=== PATIENT | female | born 1975 | race Caucasian/White ===

== ENCOUNTER 2021-11-02 13:39 | Outpatient (REF) | payer OTHER, SELFPAY ==
--- NOTE | 2021-11-02 13:15 | PAPFT_PTH ---
PATIENT: Yecenia Alfred LOC: [facility] U#:[id number] AGE/SX: 46/F ROOM: RE11/02/[address]: Aparna Lane NP : 1975 BED: DIS: 11/02/2021 SPEC #: [id number] RECD: 11/02/21 17:57 STATUS: NEISHA REYES #: [id number] SUE: 11/02/21 13:[address]: Aparna Lane NP DEPT: [facility] Cytology RECD BY: Ria Leonardo Tissues: 1 - CX/ENDOCX FOR PAP SMEARS Procedures: PAP THIN PREP/UVM Screening Comments: [id number] (CHLAMYDIA/GC) (UNSATISFACTORY FOR EVALUATION)
[2021-11-03 14:37] LABS: Chlamydia Result Negative (Negative); GC Result Negative (Negative)
== END 2021-11-02 13:40 | disposition home or self-care (01) ==
LOC: LBN 13:39
PROVIDERS: Visit Provider Nurse Practitioner Women's Health
DX: Z11.3 Encounter for screening for infections with a predominantly sexual mode of transmission (principal); Z12.4 Encounter for screening for malignant neoplasm of cervix; R87.615 Unsatisfactory cytologic smear of cervix
CPT/HCPCS: 87491; 87591; 88142

== ENCOUNTER 2021-11-06 01:08 | Outpatient (CLI) | payer OTHER, SELFPAY ==
--- OUTSIDE RECORDS SUMMARY | 2021-11-06 01:28 | XMS_ITS | Encounter Summary ---
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 CHLAMYDIA/N. Today 11/02/2021 13:15 Results for this GONORRHOEAE EDT procedure are i n AMPLIFIED RNA, the results THINPREP section. documented in this encounter Results PAP TEST (11/02/2021 13:15 EDT) Specimens A. Cervix and/or [facility] Endocervix , [place] ThinPrep Imaging LABORATORY System with Manual SERVICES Evaluation Specimen Adequacy Unsatisfactory for [facility] evaluation - CENTER insufficient numbers LABORATORY of squamous SERVICES epithelial cells (less than 10% of expected cellularity). General Unsatisfactory [facility] LABORATORY SERVICES Educational Comments Unsatisfactory - Specimen pr ocessed and examined, but unsatisfactory for evaluation of epithelial abnormality. Recommend Pap test in 2-4 months as stated in ASCCP's 2012 Updated Guidelines. HPV testing [facility] will not be performed due to the potential for false n egative results. CENTER LABORATORY SERVICES Attestation . [facility] Electronically CENTER signed by CATARINA Winston CT([facility] ) on SERVICES 11/05/2021 at 12 40 Clinical History See below [facility] LABORAT[facility] SERVICES Performing Lab [facility] LAB [facility] SERVICES Scanned Images [facility] LABOR[facility] SERVICES Specimen Pap Test - Cervix and/or Endocervix Performing Organization Address City/State/ZIP Code Phon e Number [facility] [address] [place] [address] SERVICES CHLAMYDIA/N. GONORRHOEAE AMPLIFIED RNA, THINPREP (11/02/2021 13:15 EDT) Pathologist Sig nature Gonococcus Result Negative Negative [facility] SERVICES Chlamydia Result Negative Negative [facility] SERVICES Specimen Pap Test - Cervix and/or Endocervix Performing Organization Address City/State/ZIP Code Phon e Number [facility] [address] [place] [address] SERVICES documented in this encounter Visit Diagnoses Diagnosis Encounter for other general examination documented in this encounter
--- OUTSIDE RECORDS SUMMARY | 2021-11-06 01:28 | XMS_ITS | Clinical Summary ---
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 CHLAMYDIA/N. Today 11/02/2021 13:15 Results for this GONORRHOEAE EDT procedure are i n AMPLIFIED RNA, the results THINPREP section. from Last 3 Months Results PAP TEST (11/02/2021 13:15 EDT) Specimens A. Cervix and/or [facility] Endocervix , [place] ThinPrep Imaging LABORATORY System with Manual SERVICES Evaluation Specimen Adequacy Unsatisfactory for [facility] evaluation - CENTER insufficient numbers LABORATORY of squamous SERVICES epithelial cells (less than 10% of expected cellularity). General Unsatisfactory [facility] LABORATORY SERVICES Educational Comments Unsatisfactory - Specimen pr ocessed and examined, but unsatisfactory for evaluation of epithelial abnormality. Recommend Pap test in 2-4 months as stated in ASCCP's 2012 Updated Guidelines. HPV testing [facility] will not be performed due to the potential for false n egative results. CENTER LABORATORY SERVICES Attestation . [facility] CENTER signed by CATARINA Winston CT([facility] ) on SERVICES 11/05/2021 at 12 40 Clinical History See below [facility] LABORATORY SERVICES Performing Lab [facility] LAB [facility] LABORATORY SERVICES Scanned Images [facility] LABORATORY SERVICES Specimen Pap Test - Cervix and/or Endocervix Performing Organization Address City/State/ZIP Code Phon e Number [facility] [address] [place] [address] SERVICES CHLAMYDIA/N. GONORRHOEAE AMPLIFIED RNA, THINPREP (11/02/2021 13:15 EDT) Pathologist Sig nature Gonococcus Result Negative Negative [facility] LABORATORY SERVICES Chlamydia Result Negative Negative [facility] LABORAT[facility] SERVICES Specimen Pap Test - Cervix and/or Endocervix Performing Organization Address City/State/ZIP Code Phon e Number [facility] [address] [place] [address] SERVICES from Last 3 Months
--- NOTE | 2021-11-06 06:45 | DI.US_ITS ---
Exam(s) US PELVIS TRANSVAGINAL EXAM: US PELVIS TRANSVAGINAL CLINICAL HISTORY: abnl uterine bleeding, n93.9 TECHNIQUE: Ultrasound of the pelvis was performed both transabdominal and transvaginal. COMPARISON: No exams were available for comparison FINDINGS: UTERUS: Nongravid and anteverted Measures 8.5 cm length x 4 cm AP x 6 cm wide. There are no uterine fibroids. Endometrial thickness measures 9 mm. There is no fluid in the endometrial canal. CERVIX: There are no obvious nabothian cysts. RIGHT OVARY: Measures 3 x 2.5 x 2 cm Contains small sub cm follicular cysts. LEFT OVARY: Measures 4 x 2.8 x 4 cm There is a simple unilocular cyst in the left ovary which measures 3.2 x 2.7 x 3.1 cm CUL-DE-SAC: No free fluid evident. IMPRESSION: 1. Normal appearing uterus and age-appropriate endometrium. 2. There is a 0.2 x 2.7 x 3.1 cm cyst in the left ovary which appears unilocular/simple. 3. No free fluid evident in the adnexal regions and cul-de-sac. DATA REPOSITORY:
[2021-11-06 09:51] LABS: HGB 11.9 g/dL (11.2-15.7); MCH 33.7 pg (27.0-33.0); MCHC 33.1 % (32.0-36.0); MCV 102 fL (80-95); MPV 12.4 fL (8.0-11.0); Platelet Count 292 10^3/uL (130-400); RBC 3.53 10^6/uL (3.93-5.22); RDW-SD 48.6 fL; WBC 6.38 10^3/uL (4.4-10.8)
[2021-11-06 10:39] LABS: TSH (W/Ref FT4) 1.99 uIU/mL (0.36-3.74)
== END 2021-11-06 01:28 ==
LOC: DI 01:08
PROVIDERS: Visit Provider Nurse Practitioner Women's Health
DX: N83.202 Unspecified ovarian cyst, left side; N93.9 Abnormal uterine and vaginal bleeding, unspecified
CPT/HCPCS: 36415; 85027; 76830; 76856; 84443

== ENCOUNTER 2021-11-06 14:58 | Outpatient (CLI) | payer OTHER, SELFPAY | END 2021-11-06 14:59 | disposition home or self-care (01) | LOC: LBO 15:00 | PROVIDERS: Visit Provider Nurse Practitioner Women's Health ==

== ENCOUNTER 2023-11-28 09:54 | Outpatient (REF) | payer SELFPAY ==
--- NOTE | 2023-11-28 09:45 | ENDOMET_PTH ---
PATIENT: Yecenia Alfred LOC: [facility] U#:[id number] AGE/SX: 48/F ROOM: RE11/28/[address]: Chani Painting : 1975 BED: DIS: 11/28/2023 SPEC #: [id number] RECD: 11/28/23 12:52 STATUS: NEISHA REQ #: [id number] SUE: 11/28/23 09:[address]: Chani Painting DEPT: Surgical Specimen RECD BY: Ria Leonardo ENTERED: 11/28/23 12:52 SP TYPE: Endomet OTHR DR: Unknown,Unknown Tissues: 1 - ENDOMETRIUM BX/CURRETTE Procedures: GROSS AND MICRO LEVEL 4 Comments: [id number]
== END 2023-11-28 09:55 | disposition home or self-care (01) ==
LOC: LBN 09:54
PROVIDERS: Visit Provider Obstetrics & Gynecology Gynecology
DX: N93.9 Abnormal uterine and vaginal bleeding, unspecified (principal); Z92.89 Personal history of other medical treatment
CPT/HCPCS: 88305

== ENCOUNTER 2024-02-19 09:23 | Emergency (ER) | payer SELFPAY ==
[2024-02-19] VITALS (31 sets, daily range): BP systolic 106–151; BP diastolic 67–80; PULSE 60–78; RESP 18; TEMP 36.9; O2SAT 96–100
--- NOTE | 2024-02-19 09:30 | DI.CT_ITS ---
Exam(s) CT NECK W EXAM: CT NECK W INDICATION: left sided neck pain/swelling, ?abscess. COMPARISON: No exams were available for comparison TECHNIQUE: FINDINGS: VISUALIZED PARANASAL SINUSES: Unremarkable. NASOPHARYNX: Unremarkable ORODENTAL: Unremarkable. There is a peripherally enhancing soft tissue abscess just medial to the angle of the left side of th e mandible and just above the left submandibular gland involving the medial pterygoid muscle, this pe ripherally enhancing abscess measuring 2 cm wide by 2 cm craniocaudal by 1.4cm AP. There is no c/o s eated bone destruction. No obvious dental abnormality OROPHARYNX: Unremarkable. No masses evident. HYPOPHARYNX: There is slight thickening of the free edge of the epiglottis. Valleculae unremarkable as are the aryepiglottic folds VOCAL CORDS: Unremarkable. No masses evident. Subglottic airway appears unremarkable. THYROID GLAND: Unremarkable. Normal size and no obvious nodules. SALIVARY GLANDS: Unremarkable. No significant findings in the parotid and submandibular glands. No submandibular gland calcifications. Left-sided abscess described above is immediately subjacent to t he left submandibular gland. LYMPH NODES: There is no obvious adenopathy evident in the neck and supraclavicular regions. OTHER: VISUALIZED LUNG APICES: No significant findings. IMPRESSION: 1. There is a 2.0 x 1.4 x 2.0 cm rim enhancing collection-abscess in the left submandibular soft tis sues medial to the angle of the left mandible/mandibular ramus. It involves the left medial pterygoi d muscle. There is no obvious adjacent bony erosion. No prominent adenopathy evident. RADIATION DOSE DELIVERED: 254.66mGy.cm Total DLP DATA REPOSITORY: All CT scans at this facility are submitted to the National Radiology Data Registry (NRDR) Dose Index Registry (DIR) with the [employer] (ACR). RADIATION OPTIMIZATION: All CT scans at this facility use at least one of these dose optimization te chniques: automated exposure control; mA and/or kV adjustment per patient size (includes targeted exa ms where dose is matched to clinical indication); or iterative reconstruction.
--- NOTE | 2024-02-19 09:39 | ED.GENADUL_ITS ---
Discharge Plan Disposition Patient Disposition: Against Medical Advice Condition: Serious Discharge Details Clinical Impression: Abscess of submandibular gland Primary Care Provider: Unknown,Unknown ED Provider: Wade Lane Home Meds and New Rx's Prescriptions: New clindamycin HCl 150 mg capsule 450 mg PO TID 10 Days Qty: 90 0RF Continued norethindrone acetate 5 mg tablet 5 mg PO TID Qty: 60 1RF Rx Instructions: May increase dosing to every 4 hours until bleeding stops ibuprofen 200 mg capsule 200 mg PO Q6H PRN Discharge Instructions Additional Instructions: You have an abscess that is causing the swelling. You should be contacted with an appointment for ENT at [facility] If you feel more ill, have severe worsening pain or difficulty breathing or swallowing liquids return to the emergency department for reevaluation. HPI General Mode of arrival: ambulatory . Date/Time Provider Initiated Documentation: 02/19/24 09:25 . Limitations to Documentation: no limitations . Information obtained by: patient . History of Present Illness 48 year old F presents to the emergency department with the chief complaint of left sided face/neck pain/swelling, described as moderate, Quality is described as aching, Patient started experiencing this week(s) (1) and it has been constant. No relieving factors improve symptom(s), No exacerbating factors reported . Patient notes denies fever/chills. Patient did receive the following treatments prior to arrival, none Related Data Home Medications ?Medication ?Instructions ?Recorded ?Confirmed ibuprofen 200 mg capsule 200 mg PO Q6H PRN 11/02/21 02/19/24 norethindrone acetate 5 mg tablet 5 mg PO TID #60 tabs 11/28/23 02/19/24 clindamycin HCl 150 mg capsule 450 mg (3 x 150 mg) PO TID 10 days 02/19/24 #90 caps Previous Rx's ?Medication ?Instructions ?Recorded norethindrone acetate 5 mg tablet 5 mg PO TID #60 tabs 11/28/23 clindamycin HCl 150 mg capsule 450 mg (3 x 150 mg) PO TID 10 days 02/19/24 #90 caps Allergies Allergy/AdvReac Type Severity Reaction Status Date / Time No Known Allergies Allergy Verified 02/19/24 09:31 General Stated Complaint: FacialProb TRINH: 3 Review of Systems All systems reviewed & are unremarkable except as noted in HPI and below Constitutional Constitutional: Denies chills, Denies fever(s) and Denies weakness ENT Ears, Nose, Mouth, and Throat: Denies change in voice and Reports neck pain Cardiovascular Cardiovascular: Denies chest pain and Denies dyspnea Respiratory Respiratory: Denies cough and Denies dyspnea Gastrointestinal Gastrointestinal: Denies abdominal pain, Denies nausea and Denies vomiting Musculoskeletal Musculoskeletal: Denies joint swelling and Reports neck pain Neurologic Neurologic: Denies weakness Exam Const General: no acute distress Orientation: alert HENMO Head: normal to inspection Ears: external ears normal General nose exam: external nose normal Mouth: moist mucous membranes Eyes General: appearance normal, both eyes and all related structures Neck Neck: full ROM and no lymphadenopathy Resp Effort & Inspection: normal respiratory effort and able to speak in complete sentences Cardio Rate: regular rate Skin General skin exam: no rashes or lesions noted Neuro General: patient alert and patient oriented x3 Extrem General: normal to inspection Psych Mental Status: mental status grossly normal Course Vital Signs Vital signs: Vital Signs Temperature 36.9 C 02/19/24 09:26 Pulse 78 02/19/24 09:26 Respiratory Rate 18 02/19/24 09:26 Blood Pressure 151/80 H 02/19/24 09:26 Pulse Oximetry 100 02/19/24 09:26 Temperature 36.9 C 02/19/24 09:26 Pulse 78 02/19/24 09:26 Respiratory Rate 18 02/19/24 09:26 Blood Pressure 151/80 H 02/19/24 09:26 Pulse Oximetry 100 02/19/24 09:26 Medical Decision Making 48-year-old female who denies any significant chronic medical history comes in with 1 week of left lower jaw and upper neck pain and discomfort. She also has had some swelling. She denies any fevers, change in voice, difficulty swallowing liquids. She is unable to fully open her mouth due to pain in the left lower jaw and upper neck. She has mild swelling in the left lower jaw. No drooling or stridor. She has full range of motion of the neck. Suspect p arotitis versus dental abscess but will obtain labs including CBC and CMP and CT neck to evaluate for deep neck abscess. Patient stable, labs show white count of 15, CT read pending and V rad turnaro und time is over 200 minutes. Will provide a dose of clindamycin while this is pending. ct confirms 1.8x1.3x1.7cm abscess that is submandibular. Pt stable, no drooling or stridor still has some trismus and can't fully open mouth. Will consult ent at [facility] spoke with ENT Dr. Leonard who reviewed the images and case along with her attending, they recommended admission here for IV antibiotics for 24 hours and then if improved or not worsening can be seen in the clinic tomorrow. I discussed results with the patient and she is not agreeable to be admitted. She has decision-making capacity and understands the risks of leaving including worsening infection and airway compromise leading to potential and permanent disability and she is willing to accept these risks. She is leaving AGAINST MEDICAL ADVICE. I am going to provide her clindamycin, I did advise that the ENT office should call her tomorrow for follow-up. She understands she can return if she changes her mind and also return if she has any worsening symptoms. Differential Diagnosis Differential Diagnosis: Parotitis, dental abscess Imaging Data Radiologic Study: Attestation: I personally reviewed and interpreted this imaging study as follows: Imaging: CT Scan Radiologist's impression: Left submandibular abscess at the cranial aspect of the left submandibular gland involving the medial pterygoid muscle measuring 1.8 cm. No bony erosions. Quality:SDOH Health Related Social Needs: No Data to Display PFSH All Active Problems (Updated 02/19/24 @ 13:[address] MD) Abscess of submandibular gland (Acute) History of endometrial biopsy (Acute) Abnormal uterine bleeding (AUB) (Acute) Medical History (Updated 02/19/24 @ 13:[address] MD) Suicide attempt Surgical History (Updated 11/02/21 @ 13:[address] NP) H/O tubal ligation Previous section x3 Social History (Updated 11/02/21 @ 13:[address] NP) Smoking/Tobacco Use Status: Current every day Smoking risk assessment performed?: Yes Alcohol Intake: never Drug use: Occasionally Substance use type: marijuana Number of Children: 4 current occupation: [employer] Female Reproductive History Menstrual control method: permanent sterilization History History 6 Para 4 Hx # Term Pregnancies Multiple births Hx # Pregnancies Ectopic pregnancies AB induced 1 Hx Number of Living Children AB spontaneous 1
[2024-02-19 09:53] LABS: Absolute Monocyte Count 0.71 10^3/uL (0.1-0.8); Basophils % 0.3 %; Eosinophils % 0.1 %; HCT 37.1 % (36.0-46.0); HGB 12.1 g/dL (11.2-15.7); Immature Grans % 0.7 %; Lymphocytes % 7.9 %; MCH 30.2 pg (27.0-33.0); MCHC 32.6 % (32.0-36.0); MCV 93 fL (80-95); Monocytes % 4.7 %; Neutrophils % 86.3 %; Platelet Count 331 10^3/uL (130-400); RBC 4.01 10^6/uL (3.93-5.22); RDW 16.7 % (11.7-14.6); RDW-SD 56.9 fL; WBC 15.14 10^3/uL (4.4-10.8)
[2024-02-19 09:55] LABS: Absolute Basophil Count 0.05 10^3/uL (0.0-0.2); Absolute Eosinophil Count 0.02 10^3/uL (0.0-0.7); Absolute Neutrophil Count 13.07 10^3/uL (1.2-6.7)
[2024-02-19 10:10] LABS: ALT 17 U/L (14-59); AST 11 U/L (15-37); Albumin 3.4 g/dL (3.4-5.0); Alkaline Phosphatase 47 U/L (46-116); Anion Gap 10.8 mmol/L (3-11); BUN 10 mg/dL (7-18); Bilirubin, Total 0.61 mg/dL (0.2-1.0); CO2 23.2 mmol/L (21.0-32.0); CREATININE 0.8 mg/dL (0.55-1.02); Calcium 8.7 mg/dL (8.5-10.1); Chloride 106 mmol/L (98-107); Estimated GFR 91.97 (mL/min/1.73m2); Glucose 119 mg/dL (74-106); Potassium 3.6 mmol/L (3.5-5.1); Sodium 140 mmol/L (136-145); Total Protein 7.3 g/dL (6.4-8.2)
[2024-02-19] MEDS: Normal Saline - Diluent 50 ML VIAL IJ (10:17)
[2024-02-19] MEDS: Omnipaque 350 MG/ML 100 ML BTL IJ (10:18)
[2024-02-19 10:33] LABS: Procalcitonin < 0.1 ng/mL
[2024-02-19] MEDS: CLINDAMYCIN 900 MG/50 ML BAG 50 MG IVPB (10:48)
[2024-02-19] MEDS: Dexamethasone 10 MG/ML VIAL IVP (10:48)
[2024-02-19] MEDS: Ketorolac 15 MG/ML VIAL IVP (10:48)
--- NOTE | 2024-02-19 11:22 | DI.VRAD_ITS ---
PROCEDURE INFORMATION: Exam: CT Neck With Contrast Exam date and time: 02/19/2024 10:05 AM Age: 48 years old Clinical indication: Other: Left sided neck pain/swelling, ? abscess; Patient HX: Large area of left neck sweeling for a week and half. Getting worse TECHNIQUE: Imaging protocol: Computed tomography of the neck with contrast. Contrast material: OMNIPAQUE 350; Contrast volume: 100 ml; Contrast route: INTRAVENOUS (IV); COMPARISON: No relevant prior studies available. FINDINGS: Salivary glands: Mild heterogeneous enhancement of the left submandibular gland Teeth: No periapical lucencies. Pharynx: Unremarkable. No significant tonsillar enlargement. Prevertebral and retropharyngeal spaces: Unremarkable. Larynx: Unremarkable. Epiglottis is normal. Thyroid: Normal. No enlarged or calcified nodules. Trachea: Visualized trachea is unremarkable. Lungs: Unremarkable as visualized. Lymph nodes: Unremarkable. No lymphadenopathy. Bones/joints: There is a 1.8 x 1.3 x 1.8 cm rim enhancing collection at the medial aspect of the left mandibular ramus involving the left medial pterygoid muscle with surrounding enhancement, suggestive of myositis. Small posterior osteophyte disc complexes at C5-C6 and C6-C7 with mild bony canal stenosis. Soft tissues: See Bones/joints finding. IMPRESSION: Left submandibular abscess at the cranial aspect of the left submandibular gland involving the medial pterygoid muscle measuring 1.8 cm. No bony erosions. Dictated and Authenticated by: Tam Leach MD. Ordering:LEONID Olvera MD
[2024-02-19] MEDS: ACETAMINOPHEN 1,000 MG/100 ML BAG 400 MG IVPB (11:47)
== END 2024-02-19 13:43 | disposition left against medical advice (07) ==
PROVIDERS: Emergency Provider Emergency Medicine
DX: K11.3 Abscess of salivary gland (principal); F17.200 Nicotine dependence, unspecified, uncomplicated; Z53.29 Procedure and treatment not carried out because of patient's decision for other reasons
CPT/HCPCS: 70491; 80053; 84145; 96365; 96375; 99285; 83735; 85025; J0131; J0737; J1100; J1885; J3490